=== PATIENT | male | born 1955 | race Caucasian/White ===

== ENCOUNTER → 2020-04-08 10:18 | Outpatient (BNVA) | payer BC, SELFPAY | PROVIDERS: Visit Provider Nurse Practitioner Family | DX: J02.9 Acute pharyngitis, unspecified (principal); R50.9 Fever, unspecified; J98.8 Other specified respiratory disorders | CPT/HCPCS: 87635; 87880 ==

== ENCOUNTER → 2020-04-30 15:41 | Outpatient (BNVA) | payer BC, SELFPAY | PROVIDERS: Visit Provider Nurse Practitioner Family | DX: J22 Unspecified acute lower respiratory infection (principal); R10.9 Unspecified abdominal pain; E78.2 Mixed hyperlipidemia; R53.83 Other fatigue; D64.9 Anemia, unspecified; E55.9 Vitamin D deficiency, unspecified; R35.0 Frequency of micturition; Z79.899 Other long term (current) drug therapy | CPT/HCPCS: 71046; 74018; 80053; 80061; 81003; 82306; 82607; 83036; 83540; 84402; 84403; 84443; 85025; G0103 ==

== ENCOUNTER → 2020-05-06 10:02 | Outpatient (BNVA) | payer BC, SELFPAY | PROVIDERS: Visit Provider Nurse Practitioner Family | DX: D51.9 Vitamin B12 deficiency anemia, unspecified (principal) | CPT/HCPCS: 82607; 82746 ==

== ENCOUNTER → 2020-06-28 07:44 | Outpatient (BNVA) | payer BC, SELFPAY | PROVIDERS: Visit Provider Internal Medicine | DX: Z11.59 Encounter for screening for other viral diseases (principal) | CPT/HCPCS: 87635 ==

== ENCOUNTER → 2020-07-13 14:33 | Outpatient (BNVA) | payer BC, SELFPAY | PROVIDERS: Visit Provider Nurse Practitioner Family | DX: E29.1 Testicular hypofunction (principal) | CPT/HCPCS: 84402; 84403 ==

== ENCOUNTER → 2020-10-05 11:34 | Outpatient (BNVA) | payer BC, SELFPAY | PROVIDERS: Visit Provider Nurse Practitioner Family | DX: J06.9 Acute upper respiratory infection, unspecified (principal); Z20.828 Contact with and (suspected) exposure to other viral communicable diseases | CPT/HCPCS: 87635 ==

== ENCOUNTER → 2020-11-16 14:53 | Outpatient (BNVA) | payer BC, SELFPAY | PROVIDERS: PCP Nurse Practitioner Family; Visit Provider Nurse Practitioner Family | DX: N52.9 Male erectile dysfunction, unspecified (principal) | CPT/HCPCS: 84402; 84403 ==

== ENCOUNTER → 2020-11-17 11:37 | Outpatient (BNVA) | payer BC, SELFPAY | PROVIDERS: PCP Nurse Practitioner Family; Visit Provider Nurse Practitioner Family | DX: N52.9 Male erectile dysfunction, unspecified (principal); E29.1 Testicular hypofunction; E78.2 Mixed hyperlipidemia; E55.9 Vitamin D deficiency, unspecified; E11.9 Type 2 diabetes mellitus without complications | CPT/HCPCS: 80053; 80061; 82306; 83036; 85025 ==

== ENCOUNTER → 2021-03-01 14:02 | Outpatient (BNVA) | payer BC, SELFPAY | PROVIDERS: PCP Nurse Practitioner Family; Visit Provider Nurse Practitioner Family | DX: E34.9 Endocrine disorder, unspecified (principal); E11.9 Type 2 diabetes mellitus without complications | CPT/HCPCS: 82607; 83036; 84402; 84403 ==

== ENCOUNTER → 2021-03-22 13:58 | Outpatient (BNVA) | payer BC, SELFPAY | PROVIDERS: PCP Nurse Practitioner Family; Visit Provider Nurse Practitioner Family | DX: E34.9 Endocrine disorder, unspecified (principal) | CPT/HCPCS: 80053; 84402; 84403; 85025 ==

== ENCOUNTER → 2021-10-01 10:50 | Outpatient (BNVA) | payer OTHER, SELFPAY | PROVIDERS: PCP Nurse Practitioner Family; Visit Provider Nurse Practitioner Family | DX: E34.9 Endocrine disorder, unspecified (principal) | CPT/HCPCS: 80053; 84402; 84403; 85025 ==

== ENCOUNTER → 2022-01-25 15:09 | Outpatient (BNVA) | payer OTHER, SELFPAY | PROVIDERS: PCP Nurse Practitioner Family; Visit Provider Family Medicine | DX: E34.9 Endocrine disorder, unspecified (principal); Z51.81 Encounter for therapeutic drug level monitoring; Z79.890 Hormone replacement therapy | CPT/HCPCS: 80053; 84402; 84403; 85025 ==

== ENCOUNTER → 2022-01-31 15:18 | Outpatient (BNVA) | payer MEDICARE, OTHER, SELFPAY | PROVIDERS: PCP Nurse Practitioner Family; Visit Provider Family Medicine | DX: E34.9 Endocrine disorder, unspecified (principal) | CPT/HCPCS: 83036; 85025; G0103 ==

== ENCOUNTER → 2022-08-29 14:03 | Outpatient (BNVA) | payer OTHER, SELFPAY | PROVIDERS: PCP Nurse Practitioner; Visit Provider Nurse Practitioner | DX: R69 Illness, unspecified (principal); U07.1 COVID-19 | CPT/HCPCS: 87400; 87426 ==

== ENCOUNTER → 2022-09-27 13:51 | Outpatient (BNVA) | payer MEDICARE, SELFPAY | PROVIDERS: PCP Nurse Practitioner; Visit Provider Nurse Practitioner | DX: Z79.899 Other long term (current) drug therapy (principal); E11.9 Type 2 diabetes mellitus without complications; E34.9 Endocrine disorder, unspecified; E78.2 Mixed hyperlipidemia | CPT/HCPCS: 80053; 83036; 84403; 84443; 85025 ==

== ENCOUNTER → 2022-11-22 12:05 | Outpatient (BNVA) | payer MEDICARE, SELFPAY | PROVIDERS: PCP Nurse Practitioner; Visit Provider Family Medicine | DX: E34.9 Endocrine disorder, unspecified (principal); E11.9 Type 2 diabetes mellitus without complications; E78.2 Mixed hyperlipidemia; E55.9 Vitamin D deficiency, unspecified; Z12.5 Encounter for screening for malignant neoplasm of prostate; M79.642 Pain in left hand; M79.641 Pain in right hand; M79.645 Pain in left finger(s); M79.644 Pain in right finger(s); E29.1 Testicular hypofunction; G89.29 Other chronic pain | CPT/HCPCS: 73120; 80053; 80061; 83036; 84403; 85025; G0103 ==

== ENCOUNTER → 2022-12-22 10:29 | Outpatient (BNVA) | payer MEDICARE, SELFPAY | PROVIDERS: PCP Nurse Practitioner; Referring Provider Family Medicine; Visit Provider Student in an Organized Health Care Education/Training Program | DX: M18.0 Bilateral primary osteoarthritis of first carpometacarpal joints (principal) | CPT/HCPCS: 20600; 99204; J3301; J3490 ==

== ENCOUNTER → 2023-01-19 09:12 | Outpatient (BNVA) | payer MEDICARE, SELFPAY | PROVIDERS: PCP Nurse Practitioner; Visit Provider Student in an Organized Health Care Education/Training Program | DX: M18.12 Unilateral primary osteoarthritis of first carpometacarpal joint, left hand (principal) | CPT/HCPCS: 20600; 20610; 99214 ==

== ENCOUNTER → 2023-01-30 14:09 | Outpatient (BNVA) | payer MEDICARE, SELFPAY | PROVIDERS: PCP Nurse Practitioner; Visit Provider Nurse Practitioner | DX: R69 Illness, unspecified (principal); B96.89 Other specified bacterial agents as the cause of diseases classified elsewhere; J01.90 Acute sinusitis, unspecified | CPT/HCPCS: 87400 ==

== ENCOUNTER → 2023-10-12 13:56 | Outpatient (BNVA) | payer MEDICARE, SELFPAY | PROVIDERS: PCP Nurse Practitioner Family; Visit Provider Physician Assistant | DX: M18.0 Bilateral primary osteoarthritis of first carpometacarpal joints (principal) | CPT/HCPCS: 20600; 99213; J3301; J3490 ==

== ENCOUNTER → 2023-10-20 09:40 | Outpatient (BNVA) | payer MEDICARE, SELFPAY | PROVIDERS: PCP Nurse Practitioner Family; Visit Provider Physician Assistant | DX: M17.0 Bilateral primary osteoarthritis of knee | CPT/HCPCS: 20610; 73560; 73565; 99213; J3301 ==

== ENCOUNTER → 2024-03-14 11:56 | Outpatient (BNVA) | payer MEDICARE, SELFPAY | PROVIDERS: PCP Nurse Practitioner Family; Visit Provider Nurse Practitioner Family | DX: R53.83 Other fatigue (principal); E11.9 Type 2 diabetes mellitus without complications; E78.2 Mixed hyperlipidemia; F41.1 Generalized anxiety disorder; N40.0 Benign prostatic hyperplasia without lower urinary tract symptoms | CPT/HCPCS: 80053; 80061; 81000; 82040; 82607; 83036; 84153; 84270; 84403; 84443; 85025 ==

== ENCOUNTER → 2024-08-07 10:14 | Outpatient (BNVA) | payer MEDICARE, SELFPAY | PROVIDERS: PCP Nurse Practitioner Family; Visit Provider Nurse Practitioner Family | DX: E88.810 Metabolic syndrome (principal); Z86.39 Personal history of other endocrine, nutritional and metabolic disease; M51.369 Other intervertebral disc degeneration, lumbar region without mention of lumbar back pain or lower extremity pain; E55.9 Vitamin D deficiency, unspecified; E78.2 Mixed hyperlipidemia; R53.83 Other fatigue; Z79.899 Other long term (current) drug therapy; E11.9 Type 2 diabetes mellitus without complications; R68.89 Other general symptoms and signs | CPT/HCPCS: 80053; 80061; 81003; 82306; 83036; 84402; 84403; 84443; 85025 ==

== ENCOUNTER 2024-08-12 10:53 | Outpatient (CLI) | payer MEDICARE, SELFPAY ==
--- NOTE | 2024-08-12 10:59 | XR_ITS ---
WS: [email or web address] Exam: XR lumbar spine 6V w f/e [id number] Date/Time of Exam: 08/12/2024 11:04 AM Reason For Exam: M51.369 - Other intervertebral disc degeneration, lumbar ... Comparison 03/03/2009. No acute fracture. Degenerative vacuum disc at L5-S1. Facet arthropathy at all levels. Spondylosis at all levels. Calcified density seen along the posterior margin of the L3-4 disc level that may repres ent an osteophyte or calcified disc bulge. This could cause some spinal canal stenosis at this level. Moderate dextroscoliosis of the upper L-spine. XR/XR lumbar spine 6V w f/e [id number] IMPRESSION: 1. No fracture. Moderately advanced degenerative changes and spondylosis as not ed. 2. Dextroscoliosis. 3. Calcified density at the L3-4 disc level that could be an osteophyte or calc ified posterior disc bulge. This may cause spinal canal stenosis at this level.
--- NOTE | 2024-08-12 10:59 | XR_ITS ---
WS: [email or web address] Exam: XR thoracic spine 3V* [id number] Date/Time of Exam: 08/12/2024 11:04 AM Reason For Exam: M51.34 - Other intervertebral disc degeneration, thoracic... No acute fracture. There is spondylosis and exaggerated thoracic kyphosis. Degenerative disc changes at all levels. Levoscoliosis of the lower T-spine. Paraspinal soft tissues are unremarkable. XR/XR thoracic spine 3V* [id number] IMPRESSION: 1. Moderately advanced degenerative changes and spondylosis. 2. Levoscoliosis and exaggerated thoracic kyphosis.
== END 2024-08-12 10:54 | disposition home or self-care (01) ==
LOC: RAD 10:55
PROVIDERS: PCP Nurse Practitioner Family; Visit Provider Nurse Practitioner Family
DX: M51.369 Other intervertebral disc degeneration, lumbar region without mention of lumbar back pain or lower extremity pain (principal); M54.16 Radiculopathy, lumbar region; M51.34 Other intervertebral disc degeneration, thoracic region; M41.86 Other forms of scoliosis, lumbar region; M41.35 Thoracogenic scoliosis, thoracolumbar region; M25.78 Osteophyte, vertebrae
CPT/HCPCS: 72072; 72114

== ENCOUNTER → 2024-08-14 09:08 | Outpatient (BNVA) | payer MEDICARE, SELFPAY | PROVIDERS: PCP Nurse Practitioner Family; Visit Provider Nurse Practitioner Family | DX: E78.2 Mixed hyperlipidemia (principal); Z86.39 Personal history of other endocrine, nutritional and metabolic disease; E88.810 Metabolic syndrome; R53.83 Other fatigue; Z79.899 Other long term (current) drug therapy; E55.9 Vitamin D deficiency, unspecified | CPT/HCPCS: 81003 ==

== ENCOUNTER 2024-09-03 14:41 | Outpatient (CLI) | payer MEDICARE, SELFPAY ==
--- NOTE | 2024-09-03 15:15 | MR_ITS ---
WS: [id number] MRI LUMBAR SPINE NONCONTRAST TECHNIQUE: Sagittal T1, T2 and STIR imaging. Axial T1 and T2 imaging. CLINICAL INFORMATION: M51.369 - Other intervertebral disc degeneration, lumbar ... COMPARISON: None. FINDINGS: Mild lumbar curve. No acute compression. Disc bulging worse at L3-L4 L4-L5. L1-L2: Mild central canal stenosis with mild disc bulging. Narrowing of the LEFT greater than RIGHT s ubarticular recess. Mild facet arthropathy. Foramen are patent. L2-L3: Mild annular bulging. Slight narrowing of the LEFT subarticular recess. Mild facet arthropathy . Foramen are patent. L3-L4: Central disc protrusion with severe narrowing of the thecal sac. Moderate facet arthropathy an d ligamentum flavum hypertrophy. Impingement the LEFT subarticular recess. Mild LEFT foraminal narrow ing. Dorsal epidural fat contributes to thecal sac stenosis. L4-L5: Moderate to severe narrowing of the thecal sac with prominent epidural fat. Advanced facet art hropathy and ligamentum flavum hypertrophy. Foramen are patent. L5-S1: Mild disc osteophyte complex with slight contact of the RIGHT S1 nerve root. Mild facet arthro renetta. Foramen are patent. Visualized pelvic bony structures: Normal. Paravertebral soft tissues: Normal. Partially visualized heterogeneous RIGHT renal mass measuring 4.7 x 3.8 cm. Recommend further evaluat ion with contrast-enhanced CT abdomen pelvis and/or ultrasound. Neoplasm not excluded. This is incomp letely visualized. Small disc protrusions with mild central canal stenosis in the cervical spine at C4-C6 with slight co ntact of the cervical cord. This can be further evaluated with cervical spine MRI. MR/MR lumbar spine wo con* [id number] IMPRESSION: 1. Severe narrowing of the thecal sac L3-4 with central disc protrusion and im pingement LEFT subarticular recess. Dorsal epidural fat contributes to stenosis . 2. Moderate to severe narrowing of the thecal sac L4-5 due to disc bulge and f acet arthropathy with ligamentum flavum hypertrophy. Prominent dorsal epidural fat contributes to stenosis. 3. Incompletely visualized heterogeneous RIGHT renal mass suspicious for neopl asm. Recommend further evaluation with contrast-enhanced CT abdomen pelvis and/ or ultrasound.
--- NOTE | 2024-09-03 16:00 | MR_ITS ---
WS: [id number] MRI THORACIC SPINE WITHOUT CONTRAST TECHNIQUE: Sagittal T1, T2 and STIR imaging. Axial T2 imaging. Noncontrast imaging obtained. CLINICAL INFORMATION: M51.34 - Other intervertebral disc degeneration, thoracic... COMPARISON: None. FINDINGS: Moderate thoracic kyphosis. No acute compression. Chronic anterior wedging in the midthoracic spine a t T6-T9. Endplate Schmorl's nodes. No acute appearing compression fractures. Prominent dorsal epidura l fat in the midthoracic spine results in moderate central canal stenosis at T5-T8 with effacement of the surrounding CSF. Cord signal is normal. Moderate facet arthropathy lower thoracic spine. Shallow RIGHT paracentral protrusion at T8-T9 with s light contact of the thoracic cord. Shallow RIGHT paracentral protrusion T9-T10 with slight contact o f the thoracic cord. Partially visualized heterogeneous RIGHT renal mass incompletely visualized but suspicious for neopla sm measuring up to 5 cm. Recommend further evaluation with contrast-enhanced CT abdomen pelvis and/or ultrasound. Normal caliber thoracic aorta. Small disc osteophyte protrusions in the cervical spine on the golf club weighter i maging at C4-C6 with mild central canal stenosis. MR/MR thoracic spin wo con* [id number] IMPRESSION: 1. Moderate thoracic kyphosis. No acute compression fractures. Chronic anterio r wedging in the midthoracic spine. 2. Moderate central canal stenosis with effacement of the surrounding CSF at T 5-T8 mainly due to prominent dorsal epidural fat. Mild flattening of the thorac ic cord. Cord signal appears normal. 3. Tiny disc osteophyte protrusions at T5-T6 T6-T7 and T7-T8 contribute to eriberto nosis. 4. Small RIGHT paracentral protrusions at T8-T9 and T9-T10 described above. 5. Partially visualized heterogeneous RIGHT renal mass incompletely visualized but suspicious for neoplasm measuring up to 5 cm. Recommend further evaluation with contrast-enhanced CT abdomen pelvis and/or ultrasound.
== END 2024-09-03 14:42 | disposition home or self-care (01) ==
LOC: RAD 14:42
PROVIDERS: PCP Nurse Practitioner Family; Visit Provider Nurse Practitioner Family
DX: M51.369 Other intervertebral disc degeneration, lumbar region without mention of lumbar back pain or lower extremity pain (principal); M54.16 Radiculopathy, lumbar region; M51.34 Other intervertebral disc degeneration, thoracic region; M40.204 Unspecified kyphosis, thoracic region; M99.62 Osseous and subluxation stenosis of intervertebral foramina of thoracic region; M25.78 Osteophyte, vertebrae; D41.01 Neoplasm of uncertain behavior of right kidney; M99.63 Osseous and subluxation stenosis of intervertebral foramina of lumbar region; M47.896 Other spondylosis, lumbar region
CPT/HCPCS: 72146; 72148

== ENCOUNTER 2024-09-06 16:21 | Outpatient (CLI) | payer MEDICARE, SELFPAY ==
--- NOTE | 2024-09-06 16:30 | USR_ITS ---
PROCEDURE INFORMATION: Exam: US Retroperitoneal, Complete, Kidneys and Bladder Exam date and time: 09/06/2024 4:35 PM Age: 69 years old Clinical indication: Condition or disease; Other: Other specified disorders of kidney and ureter; Additional info: N28.89 - other specified disorders of kidney and ureter TECHNIQUE: Imaging protocol: Real-time ultrasound of the retroperitoneum with image documentation. Complete exam focused on the bilateral kidneys and urinary bladder. COMPARISON: No relevant prior studies available. FINDINGS: Right kidney: The right kidney measures 13.8 x 6.6 x 6.8 cm. No mass, definite calculus, or hydronephrosis. No cortical thinning. Left kidney: The left kidney measures 14.3 x 6.1 x 7.5 cm. No mass, definite calculus, or hydronephrosis. No cortical thinning. Urinary bladder: The bladder was not well filled. No gross abnormalities. US/US renal BI* [id number] IMPRESSION: No acute findings.
== END 2024-09-06 16:22 | disposition home or self-care (01) ==
LOC: RAD 16:23
PROVIDERS: PCP Nurse Practitioner Family; Visit Provider Nurse Practitioner Family
DX: N28.89 Other specified disorders of kidney and ureter (principal)
CPT/HCPCS: 76770

== ENCOUNTER 2024-09-13 07:56 | Outpatient (CLI) | payer MEDICARE, SELFPAY ==
--- NOTE | 2024-09-13 09:00 | CT_ITS ---
WS: [id number] CT ABDOMEN AND PELVIS WITH CONTRAST HISTORY: N28.89 - Other specified disorders of kidney and ureter TECHNIQUE: Imaging performed of the abdomen and pelvis with IV contrast. Single phase imaging of the abdomen. Coronal and sagittal reformats are submitted. All CT scans at [facility] use at [address] one of these dose optimization techniques: automated exposure control; mA and/or kV adjustment per patient size (includes targeted exams where dose is matched to clinical indication); or iterative re construction. IV CONTRAST: Omnipaque 350; 100 mL IV. Oral contrast: Yes. DLP: 1203.14 mGy.cm COMPARISON: Renal ultrasound 09/06/2024, MRI 09/03/2024 Lower thorax: Lung bases are clear. Heart is normal size. No hiatal hernia. Liver/biliary system: Normal size with no intrahepatic dilatation. Gallbladder: Contracted gallbladder. No adjacent inflammation. Pancreas: Normal size pancreas and pancreatic duct. No adjacent inflammation. Spleen: Normal size spleen. No mass or infarct. Adrenal glands: Normal. Right kidney: Normal size RIGHT kidney. No renal vein tumor. Solid enhancing mass from the superior pole measures 5.0 x 6.2 x 6.1 cm. Only a single contrast seque nce was given but this does appear to be a solid mass. No renal obstruction. Left kidney: Normal. Aorta: Mild atherosclerosis with no aneurysm. Common origin of the SMA and celiac axis. Lymphadenopathy: None. Free fluid: None. GI tract: Unremarkable. Abdominal wall: Unremarkable abdominal wall. No hernia. Pelvis: Artifact from patient's bilateral hip prosthesis through the pelvis. Only partially visualize d urinary bladder. Bones: Increase in lumbar lordosis. Bilateral hip prostheses. CT/CT abdomen pelvis w con* [id number] IMPRESSION: 1. Solid mass superior pole RIGHT kidney measures 5.0 x 6.2 x 6.1 cm. Suspicio us for renal cell neoplasm until proven otherwise. Recommend follow-up with uro logy. 2. Imaging of the urinary bladder is suboptimal due to artifact from patient's bilateral hip prostheses. 3. No renal obstruction. 4. No ascites or adenopathy.
[2024-09-13] MEDS: iohexol 350 mg/mL 500 mL Btl (per mL) IV (09:51)
[2024-09-13] MEDS: iohexol 350 mg/mL 500 mL Btl (per mL) PO (09:52)
== END 2024-09-13 07:57 | disposition home or self-care (01) ==
PROVIDERS: PCP Nurse Practitioner Family; Visit Provider Nurse Practitioner Family
DX: N28.89 Other specified disorders of kidney and ureter (principal); D41.01 Neoplasm of uncertain behavior of right kidney; Z96.643 Presence of artificial hip joint, bilateral
CPT/HCPCS: 74177

== ENCOUNTER → 2025-01-15 09:48 | Outpatient (BNVA) | payer MEDICARE, SELFPAY | PROVIDERS: PCP Nurse Practitioner Family; Visit Provider Nurse Practitioner Family | DX: Z12.5 Encounter for screening for malignant neoplasm of prostate (principal); E11.9 Type 2 diabetes mellitus without complications; E88.810 Metabolic syndrome; N50.89 Other specified disorders of the male genital organs; N40.0 Benign prostatic hyperplasia without lower urinary tract symptoms | CPT/HCPCS: 80053; 81003; 83036; 85025; G0103 ==

== ENCOUNTER → 2025-01-21 08:12 | Outpatient (BNVA) | payer MEDICARE, SELFPAY | PROVIDERS: PCP Nurse Practitioner Family; Visit Provider Nurse Practitioner Family | DX: R79.89 Other specified abnormal findings of blood chemistry (principal) | CPT/HCPCS: 80053 ==

== ENCOUNTER 2025-01-22 12:31 | Outpatient (CLI) | payer MEDICARE, SELFPAY ==
--- NOTE | 2025-01-22 12:45 | US_ITS ---
WS: [email or web address] TESTICULAR ULTRASOUND HISTORY: N50.89 - Other specified disorders of the male genital or... COMPARISON: None available. TECHNIQUE: Real-time and color Doppler imaging utilized to perform a testicular ultrasound. Right testicle: 4.5 cm x 2.5 cm x 2.5 cm. Testicles normal size but there is mild diffuse heterogeneity. There is color Doppler present at the testicle but the color Doppler is not as robust as within the LEFT testicle. Diastolic consistent velocities are still present. No significant hydrocele. Right epididymis: Normal epididymis with no increased vascularity. Left testicle: 3.8 cm x 2.5 cm x 1.8 cm. Normal size and echogenicity. No mass or torsion. Normal color Doppler is present throughout. Systolic and diastolic velocities are both present. No significant hydrocele. Left epididymis: Normal epididymis with no increased vascularity. US/US scrotum [id number] IMPRESSION: 1. No testicular mass or torsion. 2. Mild heterogeneity within the RIGHT testicle and the vascularity is slightl y decreased as compared to the LEFT testicle. This can be seen with intermitten t torsion. At this time there is no torsion.
== END 2025-01-22 12:32 | disposition home or self-care (01) ==
LOC: RAD 12:33
PROVIDERS: PCP Nurse Practitioner Family; Visit Provider Nurse Practitioner Family
DX: N50.89 Other specified disorders of the male genital organs (principal); R93.811 Abnormal radiologic findings on diagnostic imaging of right testicle
CPT/HCPCS: 76870

== ENCOUNTER → 2025-04-23 15:20 | Outpatient (BNVA) | payer MEDICARE, SELFPAY | PROVIDERS: PCP Nurse Practitioner Family; Visit Provider Nurse Practitioner Family | DX: E78.2 Mixed hyperlipidemia (principal); M51.362 Other intervertebral disc degeneration, lumbar region with discogenic back pain and lower extremity pain; E11.9 Type 2 diabetes mellitus without complications; E55.9 Vitamin D deficiency, unspecified; R53.83 Other fatigue; Z79.899 Other long term (current) drug therapy | CPT/HCPCS: 80053; 80061; 81003; 82306; 83036; 83880; 85025 ==

== ENCOUNTER → 2025-04-24 10:10 | Outpatient (BNVA) | payer MEDICARE, SELFPAY | PROVIDERS: PCP Nurse Practitioner Family; Visit Provider Nurse Practitioner Family | DX: M54.41 Lumbago with sciatica, right side (principal); M54.42 Lumbago with sciatica, left side; G89.29 Other chronic pain; M54.9 Dorsalgia, unspecified | CPT/HCPCS: 99214 ==

== ENCOUNTER 2025-04-25 05:00 | Outpatient (RCR) | payer MEDICARE, SELFPAY | END 2025-05-25 23:59 | disposition home or self-care (01) | LOC: WPT 05:00 | PROVIDERS: Visit Provider Nurse Practitioner Family | DX: M54.41 Lumbago with sciatica, right side (principal); M54.42 Lumbago with sciatica, left side; G89.29 Other chronic pain | CPT/HCPCS: 97110; 97112; 97163; 97530 ==

== ENCOUNTER 2025-05-26 05:00 | Outpatient (RCR) | payer MEDICARE, SELFPAY | END 2025-06-24 23:59 | disposition home or self-care (01) | LOC: WPT 05:00 | PROVIDERS: Visit Provider Nurse Practitioner Family | DX: M54.41 Lumbago with sciatica, right side (principal); M54.42 Lumbago with sciatica, left side; G89.29 Other chronic pain | CPT/HCPCS: 97110 ==

== ENCOUNTER → 2025-06-12 09:46 | Outpatient (BNVA) | payer MEDICARE, SELFPAY | PROVIDERS: PCP Nurse Practitioner Family; Visit Provider Nurse Practitioner Family | DX: M54.41 Lumbago with sciatica, right side (principal); M54.42 Lumbago with sciatica, left side; G89.29 Other chronic pain | CPT/HCPCS: 99214 ==

== ENCOUNTER → 2025-07-03 09:49 | Outpatient (BNVA) | payer MEDICARE, SELFPAY | PROVIDERS: PCP Nurse Practitioner Family; Visit Provider Nurse Practitioner Family | DX: M54.41 Lumbago with sciatica, right side (principal); M54.42 Lumbago with sciatica, left side; G89.29 Other chronic pain | CPT/HCPCS: 99214 ==

== ENCOUNTER → 2025-07-30 11:00 | Outpatient (BNVA) | payer MEDICARE, SELFPAY | PROVIDERS: PCP Nurse Practitioner Family; Visit Provider Anesthesiology Pain Medicine | DX: M54.16 Radiculopathy, lumbar region (principal) | CPT/HCPCS: 64483; 64484; J1100; J3490; J9999 ==

== ENCOUNTER → 2025-08-13 09:40 | Outpatient (BNVA) | payer MEDICARE, SELFPAY | PROVIDERS: PCP Nurse Practitioner Family; Visit Provider Nurse Practitioner Family | DX: M54.41 Lumbago with sciatica, right side (principal); M54.42 Lumbago with sciatica, left side; G89.29 Other chronic pain | CPT/HCPCS: 99214 ==

== ENCOUNTER → 2025-09-11 11:00 | Outpatient (BNVA) | payer MEDICARE, SELFPAY | PROVIDERS: PCP Nurse Practitioner Family; Visit Provider Nurse Practitioner Family | DX: M54.41 Lumbago with sciatica, right side (principal); M54.42 Lumbago with sciatica, left side; G89.29 Other chronic pain | CPT/HCPCS: 99214 ==